=== PATIENT | male | born 1975 | race Caucasian/White ===

== ENCOUNTER 2021-02-11 03:34 | Emergency (ER) | payer SELFPAY ==
[~2021-02-11] VITALS: Ht 175.3 cm; Wt 100.8 kg
[~2021-02-11 03:34] MED LIST: ANXIETY
--- NOTE | 2021-02-11 04:20 | NUR ---
PT AMBULATED TO ER ROOM, PT A/O X4 HAS EQUAL AND UNLABORED BREATHING. PT HAS C/O SOB AND DIZZINESS ON AND OF OVER THE LAST 2 DAYS. PT ON MONITOR WITH PT VSS. PT PROVIDED BLANKET. PT DENIED ANY CURRENT WANTS OR NEEDS.
[2021-02-11 04:21] LABS: BASOPHILS % (AUTO) 1 % (0-1); EOSINOPHILS % (AUTO) 2 % (1-7); LYMPHOCYTES % (AUTO) 44 % (22-44); MEAN CORPUSCULAR HEMOGLOBIN 32.6 pg (27.5-34.5); MEAN CORPUSCULAR HGB CONC 35.1 g/dL (33.2-36.2); MEAN PLATELET VOLUME 7.3 fL (7.4-10.4); MONOCYTES % (AUTO) 7 % (2-9); NEUTROPHILS % (AUTO) 46 % (42-75); PLATELET COUNT 275 x10^3/uL (130-400); RED CELL DISTRIBUTION WIDTH 13.9 % (9.4-14.8)
[2021-02-11 04:22] LABS: MD NO
[2021-02-11 04:30] LABS: ALBUMIN 3.5 g/dL (3.4-5.0); ANION GAP 8 mmol/L (5-15); CALCIUM 8.2 mg/dL (8.5-10.1); CHLORIDE 107 mmol/L (98-107); CREATININE 0.99 mg/dL (0.7-1.3)
[2021-02-11 04:34] LABS: TROPONIN I < 0.015 ng/mL (0.000-0.045)
[2021-02-11 04:42] VITALS: BP 133/87
--- NOTE | 2021-02-11 04:43 | NUR ---
PT RESTING IN BED, PT ON MONITOR WITH VSS. PT DENIED ANY WANTS OR NEEDS. PT HAS EQUAL AND UNLABORED BREATHS.
== END 2021-02-11 05:10 | disposition home or self-care (01) ==
LOC: ED 05:00
DX: R06.00 Dyspnea, unspecified (principal); R07.89 Other chest pain; F17.210 Nicotine dependence, cigarettes, uncomplicated
CPT/HCPCS: 36415; 71045; 80048; 82040; 83880; 84484; 85025; 85379; 93005; 99406